=== PATIENT | male | born 1965 | race Caucasian/White ===

== ENCOUNTER → 2020-12-02 | Outpatient (CLI) | payer BC ==
--- NOTE | 2020-12-02 18:11 | RAD ---
EXAM: XR KNEE 3 VIEWS_RT 12/02/2020 11:17 AM CLINICAL INDICATION: Right knee pain COMPARISON: None TECHNIQUE: 3 views of the right knee FINDINGS: No acute fracture. Alignment is normal. There is likely moderate patellofemoral compartmen t narrowing. Tricompartmental osteophytes, greatest in the patellofemoral compartment. Moderate joint effusion. Mild prepatellar soft tissue swelling. 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 Moderate joint effusion and mild prepatellar soft tissue swelling. Electronically signed by: Yenifer Valles MD (12/02/2020 6:09 PM) [id number]
== END ==
LOC: DXRAD 11:09
PROVIDERS: ATTEND Physician Assistant
DX: M17.11 Unilateral primary osteoarthritis, right knee (principal); M25.461 Effusion, right knee; M25.761 Osteophyte, right knee; M79.89 Other specified soft tissue disorders
CPT/HCPCS: 73562

== ENCOUNTER 2021-01-27 13:36 | Emergency (ER) | payer BC ==
[~2021-01-27] VITALS: Ht 182.9 cm; Wt 106.7 kg
[2021-01-27] MEDS ORDERED: BACITRACIN ZINC TOPICAL OINT PACKET. TP ONE (15:00)
[2021-01-27] MEDS ORDERED: HYDROcodone/APAP 5/325MG 1 TAB TABLET PO ONE (15:00)
[2021-01-27 15:10] VITALS: BP 131/81
[2021-01-27] MEDS ORDERED: HYDR-2155 PO (15:10)
--- NOTE | 2021-01-27 15:10 | PHYS DOC ---
Past History Past Medical History: Diabetes (EM RODRÍGUEZ APRN) Past Surgical History: Other Additional Past Surgical Histo: LEFT ROTATOR, LEFT KNEE (EM RODRÍGUEZ APRN) Alcohol Use: Rarely (EM RODRÍGUEZ APRN) Adult General Chief Complaint Chief Complaint: LACERATION/AVULSION HPI HPI Patient is a 55-year-old male presents emergency department chief complaint of laceration to his left thumb tip. Patient states he was pulling a piece of acrylic glass from a bird feeder when he lacerated his thumb approximately an hour prior to arrival. Patient reports his last tetanus immunization was 2 years ago. Patient reports pain 10/10 when touching the thumb tip at the laceration site however does not have any pain otherwise. Patient denies any other physical complaints or physical concerns. Patient reports taken meloxicam, Levemir, Humalog, metformin, patient has a history of type 2 diabetes, patient states he is currently on antibiotics for a sinus infection that was started recently by his primary care physician Dr. Fernandez. (EM RODRÍGUEZ APRN) Review of Systems Review of Systems 14 body systems of review of systems have been reviewed. See HPI for pertinent positives and negative responses, otherwise all other systems are negative, nonpertinent or noncontributory. (EM RODRÍGUEZ APRN) Allergies Allergies Allergies Coded Allergies Type Severity Reaction Last Updated Verified No Known Drug Allergies 01/27/21 No (EM RODRÍGUEZ APRN) Physical Exam Physical Exam Constitutional: Well developed, well nourished, no acute distress, non-toxic appearance. 55-year-old male in no apparent distress holding a pressure bandage on his left thumb. HENT: Normocephalic, atraumatic. Eyes: conjunctiva normal, no discharge. Neck: Normal range of motion. Cardiovascular: No cyanosis, distal cap refill less than 2 seconds. Lungs & Thorax: Patient in no obvious respiratory distress, no adventitious lung sounds appreciated audibly. Skin: Warm, dry, no erythema, no rash. Avulsion injury noted on extremity note. Extremities: No tenderness, no cyanosis, no clubbing, ROM intact, no edema. Except for left thumb tip, patient has skin avulsion injury to distal tip, no disruption of nail bed, oozing bright red blood, no infectious process appreciated, pain with palpation, no other lacerations appreciated. Neurologic: Alert and oriented X 3, normal motor function, normal sensory function, no focal deficits noted. [] Psychologic: Affect normal, judgement normal, mood normal. [] (EM RODRÍGUEZ APRN) Current Patient Data Vital Signs Vital Signs Date Time Temp Pulse Resp B/P (MAP) Pulse Ox O2 Delivery O2 Flow Rate FiO2 01/27/21 13:45 98.8 98 20 138/86 (103) 98 Room Air (EM RODRÍGUEZ APRN) EKG EKG [] (EM RODRÍGUEZ APRN) Radiology/Procedures Radiology/Procedures [] (EM RODRÍGUEZ APRN) Heart Score C/O Chest Pain: No Risk Factors: Risk Factors: DM, Current or recent (<one month) smoker, HTN, HLP, family history of CAD, obesity. Risk Scores: Risk Factors: DM, Current or recent (<one month) smoker, HTN, HLP, family history of CAD, obesity. (EM RODRÍGUEZ APRN) Course & Med Decision Making Course & Med Decision Making Pertinent Labs and Imaging studies reviewed. (See chart for details) 55-year-old male, vital signs reviewed, presents emergency department concerning a laceration to his left thumb. Physical examination revealed an avulsion injury to the left thumb tip without nailbed damage. Will give 1 tablet of 5/325 [place] for pain, clean and dressed by ED vibratory pile driver, the patient's tetanus immunization was up-to-date stating it was 2 years ago when he had his shoulder surgery, Adacel DTaP medication not indicated today. Skin avulsion of distal tip nonconcerning for bony injury, measures 4 mm in diameter. Discussed wound care with patient, leave thumb dressing on for 48 hours prior to removal, remove carefully as to not disrupt the healing scab formation, cleanse gently with soap and water and redress until skin is healed. Discussed with patient to continue his home medications, discussed with patient to have close follow-up with his primary care physician Dr. Fernandez for reevaluation of the thumb tip skin avulsion injury related to his type 2 diabetes. Patient states he has an appointment soon with Dr. Fernandez. Patient gave verbal understanding of discharge home instructions, follow-up with primary care soon for reevaluation of skin avulsion injury, return to ER precautions and concerns, patient states he has no further questions or concerns and was discharged home without incident. (EM RODRÍGUEZ APRN) Dragon Disclaimer Dragon Disclaimer This electronic medical record was generated, in whole or in part, using a voice recognition dictation system. (EM RODRÍGUEZ APRN) Attending Co-Sign The patient was seen and interviewed as well as examined at the bedside. The chart was reviewed. The case was discussed. Agree with the plan of care. (AYAN MARTINEZ DO) Departure Departure: Impression: Primary Impression: Avulsion of skin of left thumb without complication Disposition: HOME / SELF CARE / HOMELESS Condition: GOOD Referrals: JONAS FERNANDEZ MD (PCP) Patient Instructions: Deep Skin Avulsion Additional Instructions: You are seen in the emergency department today for an avulsion skin injury of your left thumb tip, this type of injury cannot be sutured for repair, it must heal by forming new skin cells, this may take longer than a normal laceration that is sutured. It was dressed in the emergency department today, as we discussed please leave dressing on for 48 hours prior to removal, cleanse daily with soap and water and reapply dressing or Band-Aid until skin is healed. Please follow-up with Dr. Fernandez soon for reevaluation of your thumb tip injury. Continue your home medications as directed by your primary care physicians. Please return to the emergency department for worsening symptoms or other concerns. EMERGENCY DEPARTMENT GENERAL DISCHARGE INSTRUCTIONS Thank you for coming to [facility] (ED) today and trusting us with you care. We trust that you had a positivie experience in our Emergency Department. If you wish to speak to the department management, you may call the director at [phone]. YOUR FOLLOW UP INSTRUCTIONS ARE FOLLOWS: 1. Do you have a private Doctor? If you do not have a private doctor, please ask for a resource list of physicians or clinics that may be able to assist you with follow up care. 2. The Emergency Physician has interpreted your x-rays. The X-Ray specialist will also review them. If there is a change in the findings, you will be notified in 48 hours when at all possible. 3. A lab test or culture has been done, your results will be reviewed and you will be notified if you need a change in treatment. ADDITIONAL INSTRUCTIONS AND INFORMATION: 1. Your care today has been supervised by a physician who is specially trained in emergency care. Many problems require more than one evaluation for a complete diagnosis and treatment. We recommend that you schedule your follow up appointment as recommended to ensure complete treatment of you illness or injury. If you are unable to obtain follow up care and continue to have a problem, or if your condition worsens, we recommend that you return to the ED. 2. We are not able to safely determine your condition over the phone nor are we able to give sound medical advice over the phone. For these safety reasons, if you call for medical advice we will ask you to come to the ED for further evaluation. 3. If you have any questions regarding these discharge instructions please call the ED at [phone]. SAFETY INFORMATION: In the interest of safety, wellness, and injury prevention; we encourage you to wear your sealbelt, if you smoke; quite smoking, and we encourage family to use a protective helmet for bicycling and other sporting events that present an increased risk for head injury. IF YOUR SYMPTOMS WORSEN OR NEW SYMPTOMS DEVELOP, OR YOU HAVE CONCERNS ABOUT YOUR CONDITION; OR IF YOUR CONDITION WORSENS WHILE YOU ARE WAITING FOR YOUR FOLLOW UP APPOINTMENT; EITHER CONTACT YOUR PRIMARY CARE DOCTOR, THE PHYSICIAN WHOSE NAME AND NUMBER YOU WERE GIVEN, OR RETURN TO THE ED IMMEDIATELY. Scripts Hydrocodone Bit/Acetaminophen (HYDROCODONE-APAP 5-325 ) 1 Each Tablet 1 TAB PO PRN Q6HRS PRN for PAIN, #15 TAB 0 Refills Prov: EM RODRÍGUEZ APRN 01/27/21 Problem Qualifiers Primary Impression: Avulsion of skin of left thumb without complication Encounter type: initial encounter Qualified Codes: S61.002A - Unspecified open wound of left thumb without damage to nail, initial encounter EM RODRÍGUEZ APRN Jan 27, 2021 15:10 AYAN MARTINEZ DO Jan 30, 2021 03:52
== END 2021-01-27 15:14 | disposition home or self-care (01) ==
LOC: ER 13:36
DX: S61.012A Laceration without foreign body of left thumb without damage to nail, initial encounter (principal); E11.9 Type 2 diabetes mellitus without complications; W25.XXXA Contact with sharp glass, initial encounter; Y93.89 Activity, other specified; Y92.89 Other specified places as the place of occurrence of the external cause; Y99.8 Other external cause status
CPT/HCPCS: 99283